=== PATIENT | female | born 1965 | race Caucasian/White ===

== ENCOUNTER 2016-08-24 12:12 | Emergency (ER) | payer MEDICARE, OTHER ==
[~2016-08-24 12:12] MED LIST: CAPOZIDE 25/15 T1 EA PO; CELEXA40 MG PO; HYDROCHLOROTHIA25 MG PO; IBUPROFEN800 MG PO; KLONOPIN TAB 00.5 MG PO; NEURONTIN 400400 MG PO; NORVASC 5 MG TAB5 MG PO; PRILOSEC OTC20 MG PO; VANCOMYCIN HCL125 MG PO
[2016-08-24 14:17] LABS: HEMOGLOBIN 14.2 gm/dl (12.3-15.3); RED BLOOD COUNT 5.29 M/UL (4.00-5.10); WHITE BLOOD COUNT 8.5 K/UL (4.5-11.0)
[2016-08-24 14:30] LABS: BUN/CREATININE RATIO 19 (0-10)
[2016-11-29] MEDS ORDERED: FLEXERIL 10 MG10 MG PO (05:58)
[2016-11-29] MEDS ORDERED: VENTOLIN HFA 66.7 GM INH (05:59)
[2016-11-29] MEDS ORDERED: VENLAFAXINE HCL75 MG PO (05:59)
[2016-11-29] MEDS ORDERED: PRILOSEC OTC20 MG PO (06:00)
[2016-12-02] MEDS ORDERED: LEVAQUIN750 MG PO (14:47)
[2016-12-02] MEDS ORDERED: TESSALON PERLE100 MG PO (14:48)
[2016-12-02] MEDS ORDERED: LACTINEX TABLET1 EA PO (14:49)
[2016-12-02] MEDS ORDERED: NORCO 7.5-3251 EACH PO (14:50)
== END 2016-08-24 17:20 | disposition home or self-care (01) ==
LOC: ER1 12:12
PROVIDERS: Emergency Medicine
DX: R10.9 Unspecified abdominal pain (principal); R11.2 Nausea with vomiting, unspecified; R19.7 Diarrhea, unspecified
CPT/HCPCS: 36415; 80053; 81001; 83605; 84703; 85025; 96361; 96372; 96374; 96375; 99284; J1630; J1885; J2405; J7050; Q9962

== ENCOUNTER → 2020-04-10 | Outpatient (CLI) | payer MEDICARE ==
[~2020-04-10] MED LIST changes: +FLEXERIL 10 MG10 MG PO; +KEFLEX500 MG PO; +LACTINEX TABLET1 EA PO; +LEVAQUIN750 MG PO; +METHOCARBAMOL750 MG PO; +NORCO 7.5-3251 EACH PO; +OXYCODONE HCL5 MG PO; +PROPRANOLOL HCL40 MG PO; +TESSALON PERLE100 MG PO; +VENLAFAXINE HCL75 MG PO; +VENTOLIN HFA 66.7 GM INH
== END ==
LOC: KOH-I 13:45
DX: M54.5 Low back pain (principal); M51.37 Other intervertebral disc degeneration, lumbosacral region; M47.817 Spondylosis without myelopathy or radiculopathy, lumbosacral region
CPT/HCPCS: 72148

== ENCOUNTER → 2021-07-20 | Outpatient (CLI) | payer MEDICARE | LOC: LAB 17:36 | DX: Z20.822 Contact with and (suspected) exposure to COVID-19 (principal) | CPT/HCPCS: U0003 ==

== ENCOUNTER → 2021-07-24 | Outpatient (CLI) | payer MEDICARE ==
[2021-07-24 13:26] LABS: HEMOGLOBIN 8.4 gm/dl (12.3-15.3); RED BLOOD COUNT 4.22 M/UL (4.00-5.10); WHITE BLOOD COUNT 9.3 K/UL (4.5-11.0)
== END ==
LOC: LAB 12:11
PROVIDERS: Nurse Practitioner
DX: Z01.818 Encounter for other preprocedural examination (principal); D64.9 Anemia, unspecified; R73.09 Other abnormal glucose; Z72.0 Tobacco use
CPT/HCPCS: 36415; 71046; 80053; 83036; 85027

== ENCOUNTER → 2021-07-27 | Outpatient (CLI) | payer MEDICARE | LOC: LAB 13:21 | DX: Z20.822 Contact with and (suspected) exposure to COVID-19 (principal) | CPT/HCPCS: U0003 ==

== ENCOUNTER → 2021-09-05 | Outpatient (CLI) | payer MEDICARE ==
[2021-09-05 16:07] LABS: HEMOGLOBIN 10.3 gm/dl (12.3-15.3); RED BLOOD COUNT 4.5 M/UL (4.00-5.10); WHITE BLOOD COUNT 6.8 K/UL (4.5-11.0)
== END ==
LOC: OPSV 15:00
DX: M00.051 Staphylococcal arthritis, right hip (principal)
CPT/HCPCS: 82565; 84520; 85025; 86140

== ENCOUNTER → 2021-09-10 | Outpatient (CLI) | payer MEDICARE ==
[2021-09-10 16:04] LABS: RED BLOOD COUNT 4.44 M/UL (4.00-5.10); WHITE BLOOD COUNT 7.5 K/UL (4.5-11.0)
== END ==
LOC: OPSV 15:00
DX: M00.051 Staphylococcal arthritis, right hip (principal)
CPT/HCPCS: 36415; 82565; 84520; 85025; 86140